=== PATIENT | male | born 1980 | race Caucasian/White ===

== ENCOUNTER 2019-07-19 20:50 | Emergency (ER) | payer OTHER ==
[~2019-07-19] VITALS: Ht 180.3 cm; Wt 107.2 kg
[2019-07-19 20:53] VITALS: Ht 180.3 cm; Wt 107.2 kg
[2019-07-19 23:15] VITALS: BP 146/91
== END 2019-07-19 23:15 | disposition home or self-care (01) ==
LOC: ED 20:50
DX: S51.011A Laceration without foreign body of right elbow, initial encounter (principal); W18.09XA Striking against other object with subsequent fall, initial encounter; Y93.89 Activity, other specified; Y92.89 Other specified places as the place of occurrence of the external cause; Y99.8 Other external cause status
CPT/HCPCS: 90715; J2001; Q0092